=== PATIENT | female | born 1995 | race Caucasian/White ===

== ENCOUNTER 2024-01-14 03:17 | Emergency (ER) | payer OTHER ==
[~2024-01-14] VITALS: Ht 162.5 cm; Wt 95.7 kg
[2024-01-14] MEDS ORDERED: Ondansetron Hydrochloride 4 MG TAB SL ONE ×2 (03:35→05:30)
[2024-01-14 03:52] LABS: BASO # 0.1 10*3/uL (0.0-0.1); BASO % 0.4 % (0.0-1.0); EOS # 0.1 10*3/uL (0.0-0.4); EOS % 0.7 % (1.0-4.0); HEMATOCRIT 43.3 % (37.0-47.0); MEAN CELL VOLUME 85.9 fl (81.0-99.0); MEAN CORPUSCULAR HGB 27.4 pg (27.0-31.0); MEAN CORPUSCULAR HGB CONC 31.9 g/dl (33.0-37.0); MEAN PLATELET VOLUME 8.4 fl (9.6-12.3); MONO % 8.2 % (3.0-9.0); NEUT # 7.9 10*3/uL (2.3-7.9); NEUT % 66.3 % (47.0-73.0); PLATELET COUNT AUTOMATED 387 10*3/uL (130-400); RED BLOOD COUNT 5.04 10*6/uL (4.10-5.10); RED CELL DISTRI WIDTH 14.6 % (0-14.5); WHITE BLOOD COUNT 11.9 10*3/uL (4.8-10.8)
[2024-01-14 04:04] LABS: BILIRUBIN Negative (Negative); BLOOD Negative (Negative); CLARITY Clear (Clear); COLOR Yellow (Yellow); GLUCOSE 3+ (Negative); KETONE Negative (Negative); LEUKO ESTERASE Negative (Negative); NITRITE Negative (Negative); PH 5.5 (4.5-8.0); SPECIFIC GRAVITY >= 1.030 (1.001-1.030); UROBILINOGEN 0.2 E.U./dl (0.0-1.0)
[2024-01-14 04:14] LABS: EPITHELIAL CELLS 16-20; YEAST TRACE
[2024-01-14 04:16] LABS: ALKALINE PHOSPHATASE 110 U/L (46-116); BUN 8 mg/dl (9-23); CHLORIDE 108 mmol/L (98-107); LIPASE 41 U/L (12-53); POTASSIUM 3.7 mmol/L (3.4-5.1); SGPT/ALT 51 U/L (5-49); TOTAL PROTEIN 7.4 gm/dL (6.0-8.0)
[2024-01-14] MEDS ORDERED: MG-AL HYDROXIDE/SIMETICONE 30 ML UDC PO STA (04:59)
[2024-01-14] MEDS ORDERED: Dicyclomine Hydrochloride 20 MG/10 ML OSYR PO STA (04:59)
[2024-01-14] MEDS ORDERED: Lidocaine Hydrochloride 15 ML UDC PO STA (04:59)
[2024-01-14] MEDS ORDERED: Ondansetron4 MG PO (06:07)
== END 2024-01-14 06:20 | disposition home or self-care (01) ==
LOC: ED 03:17
PROVIDERS: Internal Medicine
DX: K21.9 Gastro-esophageal reflux disease without esophagitis (principal); R11.2 Nausea with vomiting, unspecified; R19.7 Diarrhea, unspecified; Z88.0 Allergy status to penicillin; Z88.1 Allergy status to other antibiotic agents; Z91.040 Latex allergy status; Z88.8 Allergy status to other drugs, medicaments and biological substances

== ENCOUNTER 2024-01-18 02:32 | Emergency (ER) | payer OTHER ==
[~2024-01-18] VITALS: Ht 162.5 cm; Wt 95.7 kg
[~2024-01-18 02:32] MED LIST: Ondansetron4 MG PO
[2024-01-18] MEDS ORDERED: MIRTAZAPINE45 MG PO (02:44)
[2024-01-18] MEDS ORDERED: LAMOTRIGINE100 MG PO (02:45)
[2024-01-18] MEDS ORDERED: FLUPHENAZINE HYD PO (02:45)
[2024-01-18] MEDS ORDERED: DULOXETINE HCL30 MG PO (02:45)
[2024-01-18] MEDS ORDERED: MINIPRESS5 M1 PO (02:46)
[2024-01-18] MEDS ORDERED: LAMICTAL XR50 MG PO (02:46)
[2024-01-18] MEDS ORDERED: JARDIANCE25 MG PO (02:47)
[2024-01-18] MEDS ORDERED: ALBUTEROL HFA INH (2 INH (02:47)
[2024-01-18] MEDS ORDERED: OMEPRAZOLE40 MG PO (02:47)
[2024-01-18] MEDS ORDERED: METFORMIN HYD1000 MG PO (02:48)
[2024-01-18] MEDS ORDERED: TOPAMAX100 M1 PO (02:48)
[2024-01-18] MEDS ORDERED: ZYRTEC10 M2 PO (02:48)
[2024-01-18] MEDS ORDERED: VALTREX1000 MG PO (02:49)
[2024-01-18 02:51] LABS: BASO # 0.1 10*3/uL (0.0-0.1); BASO % 0.5 % (0.0-1.0); EOS # 0.1 10*3/uL (0.0-0.4); EOS % 1.2 % (1.0-4.0); HEMATOCRIT 44.3 % (37.0-47.0); MEAN CELL VOLUME 86.2 fl (81.0-99.0); MEAN CORPUSCULAR HGB 27.6 pg (27.0-31.0); MEAN CORPUSCULAR HGB CONC 32.1 g/dl (33.0-37.0); MEAN PLATELET VOLUME 8.6 fl (9.6-12.3); MONO % 9.3 % (3.0-9.0); NEUT # 6.3 10*3/uL (2.3-7.9); NEUT % 61.5 % (47.0-73.0); PLATELET COUNT AUTOMATED 346 10*3/uL (130-400); RED BLOOD COUNT 5.14 10*6/uL (4.10-5.10); RED CELL DISTRI WIDTH 14.5 % (0-14.5); WHITE BLOOD COUNT 10.3 10*3/uL (4.8-10.8)
[2024-01-18 03:03] LABS: BILIRUBIN Negative (Negative); BLOOD 1+ (Negative); CLARITY Clear (Clear); COLOR Yellow (Yellow); GLUCOSE 3+ (Negative); KETONE Negative (Negative); LEUKO ESTERASE Negative (Negative); NITRITE Negative (Negative); PH 5.5 (4.5-8.0); SPECIFIC GRAVITY >= 1.030 (1.001-1.030)
[2024-01-18 03:10] LABS: URINE AMPHETAMINES Negative (1000ng/ml); URINE BARBITURATES Negative (200ng/ml); URINE BENZODIAZEPINES Negative (200ng/ml); URINE CANNABINOIDS (THC) Negative (50ng/ml); URINE COCAINE Negative (300ng/ml); URINE METHADONE Negative (300ng/ml); URINE OPIATES Negative (300ng/ml); URINE PHENCYCLIDINE Negative (25ng/ml)
[2024-01-18] MEDS ORDERED: LORazepam 0.5 MG TAB PO ONE (03:20)
[2024-01-18 03:32] LABS: ALKALINE PHOSPHATASE 117 U/L (46-116); BUN 7 mg/dl (9-23); CHLORIDE 108 mmol/L (98-107); POTASSIUM 3.7 mmol/L (3.4-5.1); SGPT/ALT 37 U/L (5-49); TOTAL PROTEIN 7.5 gm/dL (6.0-8.0)
[2024-01-18 03:34] LABS: EPITHELIAL CELLS 21-30; YEAST TRACE
[2024-01-18 03:35] LABS: CALCIUM OXALATE CRYSTALS Trace; RBC 16-20 rbc/hpf (0-2); WBC 0-2 wbc/hpf (0-5)
[2024-01-18 03:35] LABS: ETHYL ALCOHOL < 3.0 mg/dl (<3)
[2024-01-18] MEDS ORDERED: GUAIFENESIN 600 MG TAB ER PO ONE (10:50)
== END 2024-01-18 10:55 ==
LOC: ED 02:32
PROVIDERS: Internal Medicine
DX: F43.21 Adjustment disorder with depressed mood (principal); F41.9 Anxiety disorder, unspecified; K21.9 Gastro-esophageal reflux disease without esophagitis; G43.909 Migraine, unspecified, not intractable, without status migrainosus; E11.9 Type 2 diabetes mellitus without complications; Z79.899 Other long term (current) drug therapy; Z88.0 Allergy status to penicillin; Z88.1 Allergy status to other antibiotic agents; Z91.040 Latex allergy status; Z88.5 Allergy status to narcotic agent; Z88.8 Allergy status to other drugs, medicaments and biological substances; Z90.49 Acquired absence of other specified parts of digestive tract; Z90.89 Acquired absence of other organs; Z98.890 Other specified postprocedural states; Z87.891 Personal history of nicotine dependence

== ENCOUNTER 2024-01-29 22:54 | Emergency (ER) | payer OTHER ==
[~2024-01-29] VITALS: Wt 99.8 kg
[~2024-01-29 22:54] MED LIST changes: +ALBUTEROL HFA INH (2 INH; +DULOXETINE HCL30 MG PO; +FLUPHENAZINE HYD PO; +JARDIANCE25 MG PO; +LAMICTAL XR50 MG PO; +LAMOTRIGINE100 MG PO; +METFORMIN HYD1000 MG PO; +MINIPRESS5 M1 PO; +MIRTAZAPINE45 MG PO; +OMEPRAZOLE40 MG PO; +TOPAMAX100 M1 PO; +VALTREX1000 MG PO; +ZYRTEC10 M2 PO
[2024-01-29] MEDS ORDERED: SODIUM CHLORIDE 0.9% 500 ML IV ONE (23:00)
[2024-01-29 23:24] LABS: BASO % 0.3 % (0.0-1.0); EOS # 0.1 10*3/uL (0.0-0.4); EOS % 0.7 % (1.0-4.0); HEMATOCRIT 38.6 % (37.0-47.0); MEAN CELL VOLUME 85.8 fl (81.0-99.0); MEAN CORPUSCULAR HGB 27.6 pg (27.0-31.0); MEAN CORPUSCULAR HGB CONC 32.1 g/dl (33.0-37.0); MEAN PLATELET VOLUME 8.5 fl (9.6-12.3); MONO # 0.7 10*3/uL (0.1-1.0); MONO % 7.1 % (3.0-9.0); NEUT # 6.1 10*3/uL (2.3-7.9); NEUT % 62.6 % (47.0-73.0); PLATELET COUNT AUTOMATED 343 10*3/uL (130-400); RED CELL DISTRI WIDTH 14.4 % (0-14.5); WHITE BLOOD COUNT 9.7 10*3/uL (4.8-10.8)
[2024-01-29 23:45] LABS: ALKALINE PHOSPHATASE 104 U/L (46-116); BUN 6 mg/dl (9-23); CHLORIDE 109 mmol/L (98-107); CPK 119 U/L (34-171); ETHYL ALCOHOL < 3.0 mg/dl (<3); LIPASE 41 U/L (12-53); POTASSIUM 3.4 mmol/L (3.4-5.1); SGPT/ALT 52 U/L (5-49); TOTAL PROTEIN 6.7 gm/dL (6.0-8.0)
[2024-01-29 23:47] LABS: BILIRUBIN Negative (Negative); BLOOD Trace-Intact (Negative); CLARITY Cloudy (Clear); COLOR Yellow (Yellow); GLUCOSE 3+ (Negative); KETONE Trace (Negative); LEUKO ESTERASE Negative (Negative); NITRITE Negative (Negative); PH 6.5 (4.5-8.0); SPECIFIC GRAVITY >= 1.030 (1.001-1.030)
[2024-01-29 23:54] LABS: URINE AMPHETAMINES Negative (1000ng/ml); URINE BARBITURATES Negative (200ng/ml); URINE BENZODIAZEPINES Negative (200ng/ml); URINE CANNABINOIDS (THC) Negative (50ng/ml); URINE COCAINE Negative (300ng/ml); URINE METHADONE Negative (300ng/ml); URINE OPIATES Negative (300ng/ml); URINE PHENCYCLIDINE Negative (25ng/ml)
[2024-01-30 00:10] LABS: CALCIUM OXALATE CRYSTALS 1+; WBC 0-2 wbc/hpf (0-5)
[2024-01-30] MEDS ORDERED: LORazepam 0.5 MG TAB PO ONE (00:15)
[2024-01-30] MEDS ORDERED: SODIUM CHLORIDE 0.9% 500 ML IV ONE (00:20)
== END 2024-01-30 02:20 | disposition home or self-care (01) ==
LOC: ED 22:54
PROVIDERS: Internal Medicine
DX: Z91.148 Patient's other noncompliance with medication regimen for other reason (principal); K21.9 Gastro-esophageal reflux disease without esophagitis; F32.A Depression, unspecified; F41.9 Anxiety disorder, unspecified; G43.909 Migraine, unspecified, not intractable, without status migrainosus; E11.65 Type 2 diabetes mellitus with hyperglycemia; R00.0 Tachycardia, unspecified; Z88.0 Allergy status to penicillin; Z91.040 Latex allergy status; Z88.5 Allergy status to narcotic agent; Z88.8 Allergy status to other drugs, medicaments and biological substances; Z88.1 Allergy status to other antibiotic agents; Z79.899 Other long term (current) drug therapy; Z90.89 Acquired absence of other organs; Z90.49 Acquired absence of other specified parts of digestive tract; Z98.890 Other specified postprocedural states

== ENCOUNTER 2024-02-24 15:15 | Emergency (ER) | payer OTHER ==
[~2024-02-24] VITALS: Ht 162.5 cm; Wt 94.3 kg
[2024-02-24] MEDS ORDERED: AVPAK AZITHROM250 M1 PO (16:04)
== END 2024-02-24 15:59 | disposition home or self-care (01) ==
LOC: ED 15:15
DX: H66.92 Otitis media, unspecified, left ear (principal); R20.0 Anesthesia of skin; R68.84 Jaw pain; F32.A Depression, unspecified; F41.9 Anxiety disorder, unspecified; K21.9 Gastro-esophageal reflux disease without esophagitis; G43.909 Migraine, unspecified, not intractable, without status migrainosus; E11.9 Type 2 diabetes mellitus without complications; Z88.0 Allergy status to penicillin; Z88.1 Allergy status to other antibiotic agents; Z91.040 Latex allergy status; Z88.5 Allergy status to narcotic agent; Z88.8 Allergy status to other drugs, medicaments and biological substances; Z90.49 Acquired absence of other specified parts of digestive tract; Z90.89 Acquired absence of other organs; Z98.890 Other specified postprocedural states

== ENCOUNTER 2024-04-09 19:50 | Emergency (ER) | payer OTHER ==
[~2024-04-09] VITALS: Ht 162.5 cm; Wt 93.4 kg
[~2024-04-09 19:50] MED LIST changes: +AVPAK AZITHROM250 M1 PO; +CIPRO500 MG PO; +K-TAB20 MEQ PO; +LEVOFLOXACIN500 MG PO; +MELOXICAM7.5 MG PO; +METRONIDAZOLE500 M1 PO; +VITAMIN D250 MC1 PO
[2024-04-09 21:13] LABS: BILIRUBIN Negative (Negative); BLOOD Trace-Lysed (Negative); CLARITY Clear (Clear); COLOR Yellow (Yellow); GLUCOSE 3+ (Negative); KETONE Negative (Negative); LEUKO ESTERASE Negative (Negative); NITRITE Negative (Negative); SPECIFIC GRAVITY >= 1.030 (1.001-1.030); UROBILINOGEN 0.2 E.U./dl (0.0-1.0)
[2024-04-09 21:25] LABS: BASO % 0.4 % (0.0-1.0); EOS # 0.1 10*3/uL (0.0-0.4); EOS % 0.8 % (1.0-4.0); HEMATOCRIT 43.4 % (37.0-47.0); MEAN CELL VOLUME 85.4 fl (81.0-99.0); MEAN CORPUSCULAR HGB 27.2 pg (27.0-31.0); MEAN CORPUSCULAR HGB CONC 31.8 g/dl (33.0-37.0); MEAN PLATELET VOLUME 8.6 fl (9.6-12.3); MONO # 0.9 10*3/uL (0.1-1.0); MONO % 7.9 % (3.0-9.0); NEUT # 7.3 10*3/uL (2.3-7.9); PLATELET COUNT AUTOMATED 396 10*3/uL (130-400); RED BLOOD COUNT 5.08 10*6/uL (4.10-5.10); WHITE BLOOD COUNT 11.1 10*3/uL (4.8-10.8)
[2024-04-09 21:44] LABS: BUN 8 mg/dl (9-23); CHLORIDE 108 mmol/L (98-107); POTASSIUM 3.7 mmol/L (3.4-5.1)
[2024-04-09 21:47] LABS: RBC 0-2 rbc/hpf (0-2)
== END 2024-04-09 23:53 | disposition home or self-care (01) ==
LOC: ED 19:50
PROVIDERS: Emergency Medicine
DX: B34.9 Viral infection, unspecified (principal); H92.02 Otalgia, left ear; Z20.822 Contact with and (suspected) exposure to COVID-19; E11.9 Type 2 diabetes mellitus without complications; K21.9 Gastro-esophageal reflux disease without esophagitis; F32.A Depression, unspecified; M54.50 Low back pain, unspecified; E87.6 Hypokalemia; F41.9 Anxiety disorder, unspecified; G43.909 Migraine, unspecified, not intractable, without status migrainosus; F17.210 Nicotine dependence, cigarettes, uncomplicated; Z79.899 Other long term (current) drug therapy; Z88.0 Allergy status to penicillin; Z88.1 Allergy status to other antibiotic agents; Z91.040 Latex allergy status; Z91.018 Allergy to other foods; Z88.5 Allergy status to narcotic agent; Z88.8 Allergy status to other drugs, medicaments and biological substances; Z90.49 Acquired absence of other specified parts of digestive tract; Z90.89 Acquired absence of other organs; Z98.890 Other specified postprocedural states

== ENCOUNTER 2024-08-26 19:22 | Emergency (ER) | payer OTHER ==
[~2024-08-26] VITALS: Ht 162.5 cm; Wt 93.4 kg
[2024-08-26] MEDS ORDERED: SODIUM CHLORIDE 0.9% 1,000 ML IV ONE (19:55)
[2024-08-26] MEDS ORDERED: Ondansetron Hydrochloride 4 MG/2 ML VIAL IV ONE (19:55)
[2024-08-26 20:07] LABS: BASO # 0.0 10*3/uL (0.0-0.1); BASO % 0.3 % (0.0-1.0); EOS # 0.1 10*3/uL (0.0-0.4); EOS % 0.6 % (1.0-4.0); MEAN CELL VOLUME 83.1 fl (81.0-99.0); MEAN CORPUSCULAR HGB 26.5 pg (27.0-31.0); MEAN PLATELET VOLUME 8.5 fl (9.6-12.3); MONO # 0.6 10*3/uL (0.1-1.0); MONO % 5.6 % (3.0-9.0); NEUT # 8.2 10*3/uL (2.3-7.9); NEUT % 75.4 % (47.0-73.0); NUCLEATED RED BLOOD CELL 0.0 % (0.0-0.0); NUCLEATED RED BLOOD CELL 0.0 10*3/uL (0.0-0.0); PLATELET COUNT AUTOMATED 419 10*3/uL (130-400); RED CELL DISTRI WIDTH 15.6 % (0-14.5)
[2024-08-26 20:31] LABS: SGPT/ALT 42 U/L (5-49)
[2024-08-26 20:33] LABS: BUN < 5 mg/dl (9-23)
[2024-08-26 21:15] LABS: BILIRUBIN Negative (Negative); BLOOD Negative (Negative); CLARITY Clear (Clear); COLOR Yellow (Yellow); KETONE Negative (Negative); LEUKO ESTERASE Trace (Negative); NITRITE Negative (Negative); PH 5.5 (4.5-8.0); SPECIFIC GRAVITY <= 1.005 (1.001-1.030); UROBILINOGEN 0.2 E.U./dl (0.0-1.0)
[2024-08-26 21:25] LABS: BACTERIA 1+; RBC 0-2 rbc/hpf (0-2)
[2024-08-26] MEDS ORDERED: Ondansetron4 MG PO (21:38)
[2024-08-26] MEDS ORDERED: Ondansetron 4 MG 2 TAB ED PACK PO SCH (21:40)
== END 2024-08-26 21:45 | disposition home or self-care (01) ==
LOC: ED 19:22
PROVIDERS: Emergency Medicine
DX: J02.9 Acute pharyngitis, unspecified (principal); K02.9 Dental caries, unspecified; R11.10 Vomiting, unspecified; J34.89 Other specified disorders of nose and nasal sinuses; Z79.899 Other long term (current) drug therapy; Z88.0 Allergy status to penicillin; Z88.1 Allergy status to other antibiotic agents; Z88.6 Allergy status to analgesic agent; Z91.040 Latex allergy status; Z90.49 Acquired absence of other specified parts of digestive tract; Z90.89 Acquired absence of other organs; Z98.890 Other specified postprocedural states

== ENCOUNTER 2024-09-14 21:05 | Emergency (ER) | payer OTHER ==
[~2024-09-14] VITALS: Ht 162.5 cm; Wt 93.4 kg
[2024-09-14] MEDS ORDERED: SODIUM CHLORIDE 0.9% 1,000 ML IV ONE (22:30)
[2024-09-14] MEDS ORDERED: Ondansetron Hydrochloride 4 MG/2 ML VIAL IV ONE (22:30)
[2024-09-14 22:42] LABS: BILIRUBIN Negative (Negative); BLOOD Negative (Negative); CLARITY Clear (Clear); COLOR Yellow (Yellow); KETONE Negative (Negative); LEUKO ESTERASE Trace (Negative); NITRITE Negative (Negative); PH 5.5 (4.5-8.0); SPECIFIC GRAVITY <= 1.005 (1.001-1.030); UROBILINOGEN 0.2 E.U./dl (0.0-1.0)
[2024-09-14 22:45] LABS: BASO # 0.0 10*3/uL (0.0-0.1); BASO % 0.3 % (0.0-1.0); EOS # 0.1 10*3/uL (0.0-0.4); EOS % 0.9 % (1.0-4.0); MEAN CELL VOLUME 83.7 fl (81.0-99.0); MEAN CORPUSCULAR HGB 26.7 pg (27.0-31.0); MEAN PLATELET VOLUME 8.5 fl (9.6-12.3); MONO # 1.0 10*3/uL (0.1-1.0); MONO % 7.9 % (3.0-9.0); NEUT # 9.0 10*3/uL (2.3-7.9); NEUT % 69.7 % (47.0-73.0); NUCLEATED RED BLOOD CELL 0.0 % (0.0-0.0); NUCLEATED RED BLOOD CELL 0.0 10*3/uL (0.0-0.0); PLATELET COUNT AUTOMATED 344 10*3/uL (130-400); RED CELL DISTRI WIDTH 15.9 % (0-14.5)
[2024-09-14 22:55] LABS: BACTERIA TRACE; EPITHELIAL CELLS 21-30
[2024-09-14 23:11] LABS: BUN 9 mg/dl (9-23); SGPT/ALT 39 U/L (5-49)
[2024-09-15] MEDS ORDERED: PROTONIX40 MG PO (04:17)
== END 2024-09-15 04:28 | disposition home or self-care (01) ==
LOC: ED 21:05
PROVIDERS: Emergency Medicine
DX: K29.70 Gastritis, unspecified, without bleeding (principal); R11.2 Nausea with vomiting, unspecified; E11.9 Type 2 diabetes mellitus without complications; K21.9 Gastro-esophageal reflux disease without esophagitis; F32.A Depression, unspecified; Z90.49 Acquired absence of other specified parts of digestive tract; Z87.891 Personal history of nicotine dependence; Z88.0 Allergy status to penicillin; Z88.1 Allergy status to other antibiotic agents; Z91.040 Latex allergy status; Z88.8 Allergy status to other drugs, medicaments and biological substances; Z79.899 Other long term (current) drug therapy

== ENCOUNTER 2024-09-18 21:08 | Emergency (ER) | payer OTHER ==
[~2024-09-18] VITALS: Ht 162.5 cm; Wt 93.4 kg
[~2024-09-18 21:08] MED LIST changes: +PROTONIX40 MG PO
[2024-09-18] MEDS ORDERED: MIRALAX POWDER17 G1 PO (21:26)
[2024-09-18] MEDS ORDERED: MAGNESIUM CITRATE 296 ML BOT PO ONE (21:30)
== END 2024-09-18 22:23 | disposition home or self-care (01) ==
LOC: ED 21:08
DX: K59.00 Constipation, unspecified (principal); F17.210 Nicotine dependence, cigarettes, uncomplicated; Z88.0 Allergy status to penicillin; Z88.1 Allergy status to other antibiotic agents; Z88.8 Allergy status to other drugs, medicaments and biological substances; Z79.899 Other long term (current) drug therapy; Z90.49 Acquired absence of other specified parts of digestive tract; Z98.890 Other specified postprocedural states; Z90.89 Acquired absence of other organs; R14.1 Gas pain